=== PATIENT | male | born 1950 | race Caucasian/White ===

== ENCOUNTER → 2016-06-27 | Outpatient (CLI) | payer OTHER | LOC: FIMAGING 13:58 | PROVIDERS: ATTEND Family Medicine | DX: Z13.820 Encounter for screening for osteoporosis (principal); M85.80 Other specified disorders of bone density and structure, unspecified site ==

== ENCOUNTER 2016-09-19 19:42 | Emergency (ER) | payer OTHER ==
--- NOTE | 2016-09-19 20:12 | CPEKG ---
Heart Rate: 75 RR Interval: 800 P-R Interval: 176 QRSD Interval: 118 QT Interval: 396 QTC Interval: 443 P Gilbert: 67 QRS Gilbert: 77 T Wave Gilbert: 57 EKG Severity - ABNORMAL ECG - EKG Impression: SINUS RHYTHM EKG Impression: INCOMPLETE RIGHT BUNDLE BRANCH BLOCK Electronically Signed By: Felicia Henry 20-Sep-2016 00:53:40
[2016-09-19 20:29] LABS: % IMMATURE GRANULYOCYTES 0.4 % (0.0-1.1); ABSOLUTE IMMATURE GRANULOCYTES 0.02 10^3/uL (0.00-0.10); ADD DIFF? NO; ADD MORPH? NO; ADD SCAN? NO; ATYPICAL LYMPHOCYTE FLAG 10 (0-99); FRAGMENT RBC FLAG 0 (0-99); HEMATOCRIT 44.9 % (40.0-51.0); HEMOGLOBIN 15.7 g/dL (13.7-17.5); LEFT SHIFT FLG 0 (0-99); LIPEMIA HEMOLYSIS FLAG 90 (0-99); MEAN CELL VOLUME 91.6 fL (81.5-99.8); MEAN PLATELET VOLUME 9.4 fL (8.7-11.7); PLATELET CLUMPS FLAG 0 (0-99); PLATELET COUNT 248 10^3/uL (150-400); RED CELL DISTRIBUTION WIDTH 12.5 % (11.5-15.2)
--- NOTE | 2016-09-19 20:32 | EDPHY ---
H & P Stated Complaint: c/o narrowing of vision and lightheadedness, followed by nausea, sob now Time Seen by Provider: 09/19/16 20:16 HPI/ROS: CHIEF COMPLAINT: Near syncope HISTORY OF PRESENT ILLNESS: This patient is a 65 year old male who presents to the Emergency Department by private vehicle following an episode of near syncope at 1900 tonight. He reports that he was seated, watching TV, when his vision became acutely unfocused and he felt as though he may lose consciousness. When he stood up, he became acutely nauseated. He was able to go upstairs and pass a bowel movement; he did not feel lightheaded at that time. Upon arrival to the ED, he reports mild posterior head pressure and persistent lightheadedness. Patient does report that all day he felt somewhat uncomfortable in his abdomen. [place] as if he needed to have a bowel movement but was unable to pass any stool. He denies any chest pain or shortness of breath palpitations during the episode this evening. He did not lose consciousness. He reports feeling slightly lightheaded as if it is his vertigo currently. He tells me has a long history of feeling occasionally unfocused which he describes as vertigo He denies urinary complaints. No fever, chills, chest pain, shortness of breath, palpitations, or urinary complaints. Medical history includes ocular migraines. He also has a history of vertigo and reports that this has been more pronounced the last two days. REVIEW OF SYSTEMS: Aside from elements discussed in the HPI, a comprehensive 10-point review of systems was reviewed and is negative. PAST MEDICAL HISTORY: Triple aortic aneurysm with repair in 2007, chronic neck pain, kidney stones, ocular migraines. SOCIAL HISTORY: at bedside. Sees a chiropractor regularly for chronic neck pain. Some chiropractic manipulation was performed approximately 1 week ago. PHYSICAL EXAM: VITAL SIGNS: Reviewed by me GENERAL: Well-developed, well-nourished, resting comfortably in no respiratory distress. HEENT: Atraumatic. Eyes: No icterus, no injection. LEESA, EOMI. No nystagmus. Mouth: moist mucous membranes. No erythema or lesions. Neck: supple with no adenopathy. No bruit auscultated. LUNGS: Clear to auscultation bilaterally, no wheezes, rhonchi or rales. CARDIAC: Regular rate and rhythm, no rubs, murmurs or gallops. ABDOMEN: Soft, nontender, nondistended, bowel sounds normal. BACK: No CVA tenderness. EXTREMITIES: No trauma. No edema. Range of motion is normal throughout. NEURO: Alert and oriented, grossly nonfocal, normal motor and sensation throughout, normal finger to nose, normal gait. Fluent speech. SKIN: Warm and dry, no rash. PSYCHIATRIC: Normal mentation, no agitation. Portions of this note were transcribed by a medical education specialist. I personally performed a history, physical exam, medical decision making, and confirmed accuracy of information the transcribed note. Source: Patient - Medical/Surgical History Hx Asthma: No Hx Chronic Respiratory Disease: Yes Hx Diabetes: No Hx Cardiac Disease: No Hx Renal Disease: No Hx Cirrhosis: No Hx Alcoholism: No Hx HIV/AIDS: No Hx Splenectomy or Spleen Trauma: No Other PMH: lupus, kidney stones, silicosis, aaa repair, bladder surg, ks lithotripsy - Social History Smoking Status: Former smoker Constitutional: Initial Vital Signs Temperature (C) 36.7 C 09/19/16 19:46 Heart Rate 76 09/19/16 19:46 Respiratory Rate 16 09/19/16 19:46 Blood Pressure 190/109 H 09/19/16 19:46 O2 Sat (%) 97 09/19/16 19:46 O2 Delivery Mode Room Air Allergies/Adverse Reactions: Penicillins Allergy (Verified 09/19/16 19:50) Sulfa (Sulfonamide Antibiotics) Allergy (Verified 09/19/16 19:50) Home Medications: Medication Instructions Recorded Ciprofloxacin 500 mg 12/06/15 Plaquenil 200 mg (*) 200 mg 12/06/15 Acyclovir 12/14/15 Medical Decision Making - Diagnostics EKG Interpretation: The 12 lead EKG was interpreted by myself: Sinus rhythm, rate 75; multiple PVCs ; incomplete RBBB; no ischemic changes. See hard copy and/or "tracemaster" electronic copy for interpretation. Imaging Results: Imaging Impressions Head CT 09/19/16 20:43 Impression: Normal. Results communicated to staff at 2110 hours. Additional imaging is pending. Head CTA 09/19/16 20:43 Impression: 1. 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 2. Silicosis. Note: All stenoses are calculated using NASCET Criteria. CT Angiography of the Head Clinical Indications: Headache. R29.818. Neurological changes strongly suggesting intracerebral aneurysm. Technique: During automated power injection of 75 mL of Isovue-370, thinly collimated spiral (volumetric) multidetector helical imaging was performed through the head. Independent three-dimensional computer workstation was used for additional manipulations of images by me. Dose reduction techniques were utilized. Findings: The [place] of [place] and its branches are normal. No evidence of aneurysm or vascular malformation. Anterior communicating artery is patent. Posterior communicating arteries are not identified. Typical vertebrobasilar anatomy. No occlusions are found. Impression: Normal. I telephoned results to Dr. Felicia Henry at 2203 hours. All stenoses are scored using NASCET criteria. Neck CTA 09/19/16 20:43 Impression: 1. 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 2. Silicosis. Note: All stenoses are calculated using NASCET Criteria. CT Angiography of the Head Clinical Indications: Headache. R29.818. Neurological changes strongly suggesting intracerebral aneurysm. Technique: During automated power injection of 75 mL of Isovue-370, thinly collimated spiral (volumetric) multidetector helical imaging was performed through the head. Independent three-dimensional computer workstation was used for additional manipulations of images by me. Dose reduction techniques were utilized. Findings: The [place] of [place] and its branches are normal. No evidence of aneurysm or vascular malformation. Anterior communicating artery is patent. Posterior communicating arteries are not identified. Typical vertebrobasilar anatomy. No occlusions are found. Impression: Normal. I telephoned results to Dr. Felicia Henry at 2203 hours. All stenoses are scored using NASCET criteria. Brain MRI 09/19/16 22:31 Impression: 1. Mild diffuse cortical atrophy. 2. No ischemic lesion is identified. I telephoned results to Dr. Felicia Henry at 2330 hours. Imaging: Discussed imaging studies w/ call center agent Radiologist ED Course/Re-evaluation: This 65 year old male presents following episode of visual difficulties, lightheadedness, slight nausea, while watching TV at 1900 today. He reports sudden onset vision changes followed by acute lightheadedness and nausea, partially improved at time of arrival to the ED. He is alert, conversant, and appropriate appearing on exam with no significant findings. Will proceed with labs, EKG, and CT scans to include CT angiogram of the head and neck. Labs obtained and are within normal limits. Troponin is negative. 2205: CT results reported to me by Dr. Harsh Giraldo, radiologist. Plan for consultation with neurology to discuss CTA results. 2223: Consultation with the on-call neurologist with [facility] who recommends we proceed with MRI. He also recommends that admission unless the patient is 100% asymptomatic. Patient's MRI demonstrates no focal lesions. Prior to MRI and after return from MRI the patient reports symptoms have 100% resolved. We discussed admission to the hospital for further evaluation of a potential TIA. Patient and his feel comfortable being discharged home and would prefer to complete the evaluation as an outpatient. Patient will begin taking an aspirin for the vertebral atherosclerosis as noted on the CT scan. He understands that his symptoms this evening may have represented TIA. His symptoms have now resolved. He understands the importance of close follow-up with Neurology. He was given referral to [facility]. Patient understands reasons to return to the emergency department. Differential Diagnosis: Differential diagnoses the patient's presenting complaints was considered including but not limited to intracranial injury, TIA, ischemic cerebrovascular accident, hemorrhagic cerebrovascular accident, hypoglycemia, complex migraine , metastases, vasovagal syncope, arrhythmia, dehydration, and blood loss, tumor , seizure. - Data Points Laboratory Results: Laboratory Results 09/19/16 20:05 09/19/16 20:05 09/19/16 09/19/16 20:05 20:05 WBC 5.46 10^3/uL 10^3/uL (3.80-9.50) RBC 4.90 10^6/uL 10^6/uL (4.40-6.38) Hgb 15.7 g/dL g/dL (13.7-17.5) Hct 44.9 % % (40.0-51.0) MCV 91.6 fL fL (81.5-99.8) MCH 32.0 pg pg (27.9-34.1) MCHC 35.0 g/dL g/dL (32.4-36.7) RDW 12.5 % % (11.5-15.2) Plt Count 248 10^3/uL 10^3/uL (150-400) MPV 9.4 fL fL (8.7-11.7) Neut % (Auto) 72.4 % % (39.3-74.2) Lymph % (Auto) 14.5 % L % (15.0-45.0) [place] % (Auto) 9.3 % % (4.5-13.0) Eos % (Auto) 2.7 % % (0.6-7.6) Baso % (Auto) 0.7 % % (0.3-1.7) Nucleat RBC Rel Count 0.0 % % (0.0-0.2) Absolute Neuts (auto) 3.95 10^3/uL 10^3/uL (1.70-6.50) Absolute Lymphs (auto) 0.79 10^3/uL L 10^3/uL (1.00-3.00) Absolute Monos (auto) 0.51 10^3/uL 10^3/uL (0.30-0.80) Absolute Eos (auto) 0.15 10^3/uL 10^3/uL (0.03-0.40) Absolute Basos (auto) 0.04 10^3/uL 10^3/uL (0.02-0.10) Absolute Nucleated RBC 0.00 10^3/uL 10^3/uL (0-0.01) Immature Gran % 0.4 % % (0.0-1.1) Immature Gran # 0.02 10^3/uL 10^3/uL (0.00-0.10) Sodium 141 mEq/L mEq/L (134-144) Potassium 3.8 mEq/L mEq/L (3.5-5.2) Chloride 104 mEq/L mEq/L (97-110) Carbon Dioxide 26 mEq/l mEq/l (22-31) Anion Gap 11 mEq/L mEq/L (8-16) BUN 18 mg/dL mg/dL (7-23) Creatinine 1.1 mg/dL mg/dL (0.7-1.3) Estimated GFR > 60 Glucose 89 mg/dL mg/dL (70-100) Calcium 10.0 mg/dL mg/dL (8.5-10.4) Troponin I < 0.012 ng/mL ng/mL (0-0.034) Departure - Departure Disposition: Home, Routine, Self-Care Clinical Impression: Vasovagal near syncope TIA (transient ischemic attack) Qualifiers: Transient cerebral ischemia type: unspecified Qualified Code(s): G45.9 - Transient cerebral ischemic attack, unspecified Condition: Fair Report Scribed for: Felicia Henry Report Scribed by: Maricruz Pinedo Date of Report: 09/19/16 Time of Report: 20:25
[2016-09-19 20:33] LABS: ANION GAP 11 mEq/L (8-16); CARBON DIOXIDE 26 mEq/l (22-31); CHLORIDE 104 mEq/L (97-110); CREATININE 1.1 mg/dL (0.7-1.3); GLOMERULAR FILTRATION RATE > 60; GLUCOSE 89 mg/dL (70-100); POTASSIUM 3.8 mEq/L (3.5-5.2); SODIUM 141 mEq/L (134-144)
[2016-09-19 20:44] LABS: TROPONIN I < 0.012 ng/mL (0-0.034)
[2016-09-19] MEDS ORDERED: IOPAMIDOL (ISOVUE 370) 100 ML BTL IV ONE (20:49)
[2016-09-19 21:44] VITALS: TEMP 98.2
[2016-09-19 23:47] VITALS: BP 142/64; PULSE 68; RESP 18; O2SAT 96
== END 2016-09-19 23:46 | disposition home or self-care (01) ==
LOC: UNDOADMOB 22:33
DX: R55 Syncope and collapse (principal); G45.9 Transient cerebral ischemic attack, unspecified; Z87.891 Personal history of nicotine dependence
CPT/HCPCS: 70450; 70496; 70498; 70551; 93005; Q9967

== ENCOUNTER 2016-09-29 12:19 | Observation (INO) | payer OTHER ==
--- NOTE | 2016-09-29 12:33 | EDPHY ---
H & P Time Seen by Provider: 09/29/16 12:24 HPI/ROS: CHIEF COMPLAINT: Groin swelling. HISTORY OF PRESENT ILLNESS: The patient is a 65-year-old male, brought in by EMS , s/p left vertebral artery stent placement, who presents with sudden onset of right groin swelling. The patient was walking and felt a sudden popping sensation in his right groin followed by weakness in his lower extremity. After resting for a bit, he developed a firm, swollen, bulge to his right groin. Patient was nauseous during transport and received 4mg Zofran. The patient takes a daily Aspirin. REVIEW OF SYSTEMS: A comprehensive 10 point review of systems is otherwise negative aside from elements mentioned in the history of present illness. Past Medical/Surgical History: Lupus, AAA Social History: . Lives in [place]. Smoking Status: Former smoker Physical Exam: General Appearance: Alert, pleasant Eyes: Pupils equal and round, no conjunctival pallor or injection ENT, Mouth: Mucous membranes moist Neck: Normal inspection Respiratory: Lungs are clear to auscultation Cardiovascular: Regular rate and rhythm Gastrointestinal: Abdomen is soft and non-tender Neurological: A&O, nonfocal, normal gait Skin: Warm and dry, no rash Extremities: Moderate area of swelling in the right groin- 4cm in diameter Psychiatric: Mood and affect normal Constitutional: Initial Vital Signs Temperature (C) 36.8 C 09/29/16 12:20 Heart Rate 92 09/29/16 12:20 Respiratory Rate 16 09/29/16 12:20 Blood Pressure 160/91 H 09/29/16 12:20 O2 Sat (%) 97 09/29/16 12:20 O2 Delivery Mode Room Air Allergies/Adverse Reactions: Penicillins Allergy (Verified 09/29/16 13:30) Rash Sulfa (Sulfonamide Antibiotics) Allergy (Verified 09/29/16 13:30) Rash Home Medications: Medication Instructions Recorded Aspirin [Aspirin 325 mg (*)] 325 mg PO DAILY 09/29/16 Ciprofloxacin HCl [Ciprofloxacin] 500 mg PO MOWEFR 09/29/16 Clopidogrel Bisulfate [Plavix (*)] 75 mg PO DAILY 09/29/16 Hydroxychloroquine Sulfate 200 mg PO DAILY 09/29/16 [Plaquenil 200 mg (*)] Medical Decision Making ED Course/Re-evaluation: The patient had vertebral artery stent placed yesterday. Today he developed sudden onset right groin swelling. I spoke to the patient's neuro-radiologist. He would like the patient admitted for 24 hours of lying flat. Direct pressure is being applied to the right groin. Lab work is unremarkable. US is pending. - Data Points Laboratory Results: Laboratory Results 09/29/16 12:34 09/29/16 12:34 09/29/16 09/29/16 12:34 12:34 WBC 6.56 10^3/uL 10^3/uL (3.80-9.50) RBC 4.93 10^6/uL 10^6/uL (4.40-6.38) Hgb 16.0 g/dL g/dL (13.7-17.5) Hct 44.3 % % (40.0-51.0) MCV 89.9 fL fL (81.5-99.8) MCH 32.5 pg pg (27.9-34.1) MCHC 36.1 g/dL g/dL (32.4-36.7) RDW 12.4 % % (11.5-15.2) Plt Count 232 10^3/uL 10^3/uL (150-400) MPV 9.4 fL fL (8.7-11.7) Neut % (Auto) 74.8 % H % (39.3-74.2) Lymph % (Auto) 13.6 % L % (15.0-45.0) [place] % (Auto) 9.8 % % (4.5-13.0) Eos % (Auto) 0.9 % % (0.6-7.6) Baso % (Auto) 0.6 % % (0.3-1.7) Nucleat RBC Rel Count 0.0 % % (0.0-0.2) Absolute Neuts (auto) 4.91 10^3/uL 10^3/uL (1.70-6.50) Absolute Lymphs (auto) 0.89 10^3/uL L 10^3/uL (1.00-3.00) Absolute Monos (auto) 0.64 10^3/uL 10^3/uL (0.30-0.80) Absolute Eos (auto) 0.06 10^3/uL 10^3/uL (0.03-0.40) Absolute Basos (auto) 0.04 10^3/uL 10^3/uL (0.02-0.10) Absolute Nucleated RBC 0.00 10^3/uL 10^3/uL (0-0.01) Immature Gran % 0.3 % % (0.0-1.1) Immature Gran # 0.02 10^3/uL 10^3/uL (0.00-0.10) Sodium 139 mEq/L mEq/L (134-144) Potassium 4.2 mEq/L mEq/L (3.5-5.2) Chloride 107 mEq/L mEq/L (97-110) Carbon Dioxide 23 mEq/l mEq/l (22-31) Anion Gap 9 mEq/L mEq/L (8-16) BUN 12 mg/dL mg/dL (7-23) Creatinine 0.9 mg/dL mg/dL (0.7-1.3) Estimated GFR > 60 Glucose 90 mg/dL mg/dL (70-100) Calcium 10.2 mg/dL mg/dL (8.5-10.4) Departure - Departure Disposition: [facility] Inpatient Acute Clinical Impression: Groin hematoma Qualifiers: Encounter type: initial encounter Qualified Code(s): S30.1XXA - Contusion of abdominal wall, initial encounter Condition: Good Report Scribed for: Jerri Lino Report Scribed by: Belen Eddy Date of Report: 09/29/16 Time of Report: 12:37 Physician Review and Approval Statement: 09/29/16 12:37 Portions of this note were transcribed by a medical lab assistant. I personally performed the history, physical exam, and medical decision-making; and confirmed the accuracy of the information in the transcribed note.
[2016-09-29 12:40] LABS: % IMMATURE GRANULYOCYTES 0.3 % (0.0-1.1); ABSOLUTE IMMATURE GRANULOCYTES 0.02 10^3/uL (0.00-0.10); ADD DIFF? NO; ADD MORPH? NO; ADD SCAN? NO; ATYPICAL LYMPHOCYTE FLAG 30 (0-99); FRAGMENT RBC FLAG 0 (0-99); HEMATOCRIT 44.3 % (40.0-51.0); LEFT SHIFT FLG 0 (0-99); LIPEMIA HEMOLYSIS FLAG 90 (0-99); MEAN CELL HEMOGLOBIN 32.5 pg (27.9-34.1); MEAN CELL HEMOGLOBIN CONCENTR. 36.1 g/dL (32.4-36.7); MEAN CELL VOLUME 89.9 fL (81.5-99.8); MEAN PLATELET VOLUME 9.4 fL (8.7-11.7); PLATELET CLUMPS FLAG 0 (0-99); PLATELET COUNT 232 10^3/uL (150-400); RED BLOOD CELL COUNT 4.93 10^6/uL (4.40-6.38); RED CELL DISTRIBUTION WIDTH 12.4 % (11.5-15.2)
[2016-09-29 12:54] LABS: ANION GAP 9 mEq/L (8-16); CALCIUM 10.2 mg/dL (8.5-10.4); CARBON DIOXIDE 23 mEq/l (22-31); CHLORIDE 107 mEq/L (97-110); CREATININE 0.9 mg/dL (0.7-1.3); GLOMERULAR FILTRATION RATE > 60; GLUCOSE 90 mg/dL (70-100); POTASSIUM 4.2 mEq/L (3.5-5.2); SODIUM 139 mEq/L (134-144)
[2016-09-29] MEDS ORDERED: ACETAMINOPHEN 325 MG TAB PO PRN (15:10)
[2016-09-29] MEDS ORDERED: TEMAZEPAM 15 MG CAP PO PRN (15:10)
[2016-09-29] MEDS ORDERED: ONDANSETRON 4 MG/2 ML VIAL IVP PRN (15:10)
--- NOTE | 2016-09-29 15:16 | GHP ---
[f rep st] HISTORY AND PHYSICAL DATE OF ADMISSION: 09/29/2016 CHIEF COMPLAINT: Right groin swelling. HISTORY OF PRESENT ILLNESS: This is a 65-year-old male, initially presented to the emergency depart [facility] on 09/19/2016, with presyncopal symptoms, as well as visual changes. A CT angio of the head an d neck, as well as a brain MRI, were done, which demonstrated severe stenosis at the origin of the r ight vertebral artery. The patient subsequently underwent vertebral artery stent placement at [facility] this past Friday. He was monitored in the ICU for 24 hours postprocedure, and was subs equently discharged yesterday. He has been on aspirin and Plavix for the past 10 days. Today, he was moving around his house, when he had sudden onset of right groin swelling, which he as sociated with a sudden popping sensation in his right groin. He did develop some weakness in his le gs. Currently, he denies any numbness or weakness in his right leg or foot. He is feeling anxious lying in bed, but otherwise denies any generalized weakness or pain. PAST MEDICAL HISTORY: 1. Silicosis. 2. SLE. 3. Ruptured AAA, status post repair. 4. Kidney stones. HOME MEDICATIONS: Reviewed. Refer to [facility] for details. ALLERGIES: Penicillin and sulfa. SOCIAL HISTORY: He denies any alcohol, tobacco, or illicit drug use. FAMILY HISTORY: Reviewed and noncontributory. REVIEW OF SYSTEMS: Comprehensive 10-point review of systems was negative, except for as mentioned i n the HPI. PHYSICAL EXAM: GENERAL: In no acute distress. HEAD: Normocephalic, atraumatic. EYES: PERRLA. Sclerae anicteric. MOUTH: Moist mucous membranes. NECK: Supple. No lymphadenopathy. CARDIOVASC ULAR: S1, S2. No murmurs, rubs, clicks, gallops. No JVD. No lower extremity edema. PULMONARY: Lungs are clear. No wheezes, rales, or rhonchi. ABDOMEN: Soft, nontender, nondistended. No guard ing or rebound tenderness. Normoactive bowel sounds. GROIN: There is an approximately 3 cm area o f fullness without fluctuance superior to the right femoral artery puncture site. 2+ dorsal pedal a nd posterior tibial pulses bilaterally. EXTREMITIES: No clubbing or cyanosis. SKIN: training executive both feet. NEURO: Cranial nerves 2-12 grossly intact. No focal motor or sensory deficits. DIAGNOSTICS: WBC 6.56, hemoglobin 16, hematocrit 44.3, platelets 232. Sodium 139, potassium 4.2, c hloride 107, BUN 12, creatinine 0.9, glucose 90. Calcium within normal range. CT angio of the head and neck done 09/19/2016, was reviewed, brain MRI done 09/19/2016, was reviewed. ASSESSMENT: This is a 65-year-old male, diagnosed with severe right vertebral artery stenosis on 2016, who underwent vertebral artery stent placement on September 27, 2016, at [facility] presenting w ith right groin hematoma. PLAN: The patient will be placed on observation. Ultrasound has been ordered to evaluate for pseud oaneurysm. The patient will be monitored for retroperitoneal bleeding, as well. We will repeat H a nd H later on today. I have a call into Dr. Zamora, who is liquefaction supervisor for General Surgery, to further di scuss care, as well. For now, weight will be placed in the right groin, and the patient will be kep t in a supine position for the next 24 hours, per the request of his neuroradiologist at [facility]. The patient will be continued on aspirin and Plavix. /[id number]/MODL
[2016-09-29 23:55] LABS: HEMATOCRIT 40.7 % (40.0-51.0); HEMOGLOBIN 14.2 g/dL (13.7-17.5)
[2016-09-30 00:04] LABS: INR 1.12 (0.83-1.16); PROTIME(PATIENT) 14.3 SEC (12.0-15.0)
[2016-09-30 00:05] LABS: APTT 24.9 SEC (23.0-38.0)
[2016-09-30 08:16] LABS: HEMATOCRIT 43.6 % (40.0-51.0); HEMOGLOBIN 15.2 g/dL (13.7-17.5)
[2016-09-30] MEDS ORDERED: CLOPIDOGREL BISULFATE 75 MG TAB PO SCH (09:00)
[2016-09-30] MEDS ORDERED: HYDROXYCHLOROQUINE SULFATE 200 MG TAB PO SCH (09:00)
[2016-09-30] MEDS ORDERED: ASPIRIN 325 MG TAB PO SCH (09:00)
--- NOTE | 2016-09-30 09:22 | HOSPPROG ---
Hospitalist Progress Note Assessment/Plan: #Right groin hematoma: U/S with no pseudoaneurysm. H/H stable #Syncope: no e/o ischemia. #Disp: DC today Subjective: no groin pain. No dizziness Objective: Vital Signs Temp Pulse Resp BP Pulse Ox 36.7 C 76 16 146/82 H 96 09/30/16 08:00 09/30/16 08:00 09/30/16 08:00 09/30/16 08:00 09/30/16 08:00 Laboratory Results 09/30/16 08:10 09/29/16 09/30/16 10/01/16 05:59 05:59 05:59 Output Total 700 Balance -700 PT 14.3 SEC (12.0-15.0) 09/29/16 23:40 INR 1.12 (0.83-1.16) 09/29/16 23:40 - Physical Exam Constitutional: no apparent distress, other (lying suspine) Ears, Nose, Mouth, Throat: moist mucous membranes Cardiovascular: regular rate and rhythym, no murmur, rub, or gallop Respiratory: no respiratory distress, no rales or rhonchi Gastrointestinal: normoactive bowel sounds, soft, non-tender abdomen Genitourinary: no bladder fullness, no bladder tenderness Skin: warm Musculoskeletal: other (right groin incision site with min swelling. +2 femoral , pedal, dorsalis pulse) Neurologic: AAOx3, sensation intact bilaterally, CN II-XII Intact Psychiatric: interacting appropriately ICD10 Worksheet Patient Problems: Problems Problem Status Onset Groin hematoma Acute TIA (transient ischemic attack) Acute Vasovagal near syncope Acute
[2016-09-30 12:46] VITALS: RESP 14
[2016-09-30 15:33] VITALS: BP 134/73; PULSE 83; TEMP 98.2; O2SAT 97
[2016-09-30 16:41] LABS: HEMATOCRIT 43.1 % (40.0-51.0); HEMOGLOBIN 14.9 g/dL (13.7-17.5)
--- NOTE | 2016-09-30 18:05 | GDS ---
[f rep st] DISCHARGE SUMMARY DISCHARGE DIAGNOSES: 1. History of ruptured abdominal aortic aneurysm, status post repair. 2. Lupus. 3. Silicosis. 4. Kidney stones. 5. Acute right groin hematoma. HISTORY OF PRESENT ILLNESS: Patient is a 65-year-old male, who initially presented to the ER on with presyncopal symptoms, as well as visual changes. A CT angio head and neck demonstrated severe stenosis at the origin of the right vertebral artery. He underwent a vertebral artery stent placement at [facility] by Dr. Dolan. He was monitored in the ICU 24 hours postprocedure and was discharged yesterday. He has been taking aspirin and Plavix as prescribed. Yesterday, he was moving around the house and then gardening. He felt sudden onset of swelling in the right groin. H e developed some weakness in his legs, but denies any weakness or numbness. HOSPITAL COURSE BY PROBLEM: 1. Groin hematoma: Secondary to vertebral artery stent placement. He was admitted and observed ov [facility]. Pressure was placed with sandbags. Hematoma nearly resolved this morning with good pulses . I did speak with his primary neurosurgeon, Dr. Dolan, and he will follow up with him tomorrow. Waqar rodriguez is to continue his statin and Plavix. 2. Other medical conditions: Continue current treatment. DISPOSITION: Patient is stable for discharge. FOLLOWUP: With his primary neurosurgeon. /[id number]/MODL
== END 2016-09-30 18:09 | disposition home or self-care (01) ==
LOC: EDUNIT# → F3E 13:50
PROVIDERS: ADMIT Family Medicine; ATTEND Internal Medicine
DX: I97.638 Postprocedural hematoma of a circulatory system organ or structure following other circulatory system procedure (principal); M32.9 Systemic lupus erythematosus, unspecified; J62.8 Pneumoconiosis due to other dust containing silica; N20.0 Calculus of kidney
CPT/HCPCS: 76936; 76942; G0378

== ENCOUNTER 2016-10-02 12:28 | Emergency (ER) | payer OTHER ==
--- NOTE | 2016-10-02 12:41 | EDPHY ---
H & P Time Seen by Provider: 10/02/16 12:37 HPI/ROS: CHIEF COMPLAINT: Visual change HISTORY OF PRESENT ILLNESS: Patient is a 65-year-old male with recent vertebral artery stent placement. Patient states that over the past year he has had a few episodes of visual change. 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 On 09/18/2016 he return of his symptoms and was seen in the emergency department. 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 He was discharged from the emergency department and followed up with Dr. Felipe the next day. Dr. Felipe recommended stent placement and the procedure was performed at [facility]. Patient had a subsequent groin hematoma. He has been home for the past few days. He has been doing well with no new complaints. Today was staying in a garage when he noticed sudden visual change. This lasted for few seconds. He described by ocular spots and lights. His symptoms are now resolved. He had no other symptoms today. He denies headache, dizziness, lightheadedness, neck pain, nausea or vomiting. He has no weakness or numbness. REVIEW OF SYSTEMS: My complete review of systems is negative except as mentioned in the HPI. Past Medical/Surgical History: Includes abdominal aortic aneurysm, vertebral artery occlusion Past surgical history: Includes AAA repair, right vertebral artery stent placement Social history: The patient is . He does not smoke Smoking Status: Former smoker Physical Exam: Vitals noted GENERAL: Well-appearing, in no acute distress, alert. HEENT: PERRLA. Eyes normal to inspection, normal pharynx, no signs of dehydration. NECK: No thyromegaly, no lymphadenopathy, supple. RESPIRATORY: Clear to auscultation bilaterally, no rales, rhonchi or wheezing. CVS: Regular rate and rhythm, no rubs, murmurs, or gallops. ABDOMEN: Soft, nontender, nondistended, no organomegaly. BACK: Normal to inspection, no CVA tenderness. SKIN: Normal color, no rash, warm, dry. No pallor. EXTREMITIES: No pedal edema, no calf tenderness, no Homans sign or cords, no joint swelling. NEURO/PSYCH: Higher functions: Alert and Oriented x3. Normal speech and cognition. Normal mood and affect. Cranial nerves: Normal as tested. Cerebellar: Normal as tested. Good finger to nose, good [id number], normal gait. Peripheral exam: Normal motor exam. Normal sensation. Normal reflexes. NIHSS: 0 Constitutional: Initial Vital Signs Temperature (C) 36.8 C 10/02/16 12:41 Heart Rate 81 10/02/16 12:41 Respiratory Rate 16 10/02/16 12:41 Blood Pressure 174/92 H 10/02/16 12:41 O2 Sat (%) 99 10/02/16 12:41 O2 Delivery Mode Room Air Allergies/Adverse Reactions: Penicillins Allergy (Verified 10/02/16 12:44) Rash Sulfa (Sulfonamide Antibiotics) Allergy (Verified 10/02/16 12:44) Rash Home Medications: Medication Instructions Recorded Aspirin 10/02/16 Cipro 10/02/16 Plaquenil 10/02/16 Plavix 10/02/16 Medical Decision Making - Diagnostics Imaging Results: Imaging Impressions Head CTA 10/02/16 13:36 Impression: 1. Normal intracranial arterial circulation. No evidence of embolic disease or aneurysm. 2. Patent venous system. Findings discussed with Emergency Department physician, Dr. Elva Mendoza on October 02, 2016 at 1427 hours. Neck CTA 10/02/16 13:36 Impression: 1. New right vertebral arteries stent appears patent. No vertebral artery occlusion. 2. Widely patent carotid arteries. Unchanged mild calcified plaque. 3. Progressive massive fibrosis consistent with silicosis. Findings discussed with Emergency Department physician, Elva Mendoza on at 1427 hours. Measurement of carotid stenosis is based on the residual internal carotid diameter with [place] Symptomatic Carotid Endarterectomy Trial (NASCET) based stenosis levels. ED Course/Re-evaluation: In the emergency department I met the patient on arrival. He had no complaints. His neuro exam was normal. I contacted Dr. Scales's office. The nurse stated that Dr. Scales recommended the patient undergo CT angio. I discussed the plan with the patient. I answered all his questions. I rechecked the patient on numerous occasions. He had a nonfocal neuro exam while here. CT angio head and neck: Please refer the dictated report by Dr. Palumbo. The stent appears patent with distal flow. There is no other abnormality noted. 14 50: I discussed the case with Dr. Scales. I informed him of CT angiogram results. He felt the patient did not need further imaging in the emergency department. He did not want MRI at this time. On recheck the patient was doing well. He had a nonfocal neuro exam. He is given warnings prior to leaving. He will return with worsening symptoms. Differential Diagnosis: Differential includes but is not limited to ischemic CVA, hemorrhagic CVA, stent occlusion, dissection, aneurysm, retinal detachment, vitreous hemorrhage - Data Points Laboratory Results: Laboratory Results 10/02/16 12:40 10/02/16 12:40 10/02/16 10/02/16 10/02/16 12:40 12:40 12:40 WBC 6.14 10^3/uL 10^3/uL (3.80-9.50) RBC 5.13 10^6/uL 10^6/uL (4.40-6.38) Hgb 16.8 g/dL g/dL (13.7-17.5) Hct 47.2 % % (40.0-51.0) MCV 92.0 fL fL (81.5-99.8) MCH 32.7 pg pg (27.9-34.1) MCHC 35.6 g/dL g/dL (32.4-36.7) RDW 12.4 % % (11.5-15.2) Plt Count 297 10^3/uL 10^3/uL (150-400) MPV 9.5 fL fL (8.7-11.7) Neut % (Auto) 73.4 % % (39.3-74.2) Lymph % (Auto) 14.0 % L % (15.0-45.0) [place] % (Auto) 9.4 % % (4.5-13.0) Eos % (Auto) 1.8 % % (0.6-7.6) Baso % (Auto) 0.7 % % (0.3-1.7) Nucleat RBC Rel Count 0.0 % % (0.0-0.2) Absolute Neuts (auto) 4.51 10^3/uL 10^3/uL (1.70-6.50) Absolute Lymphs (auto) 0.86 10^3/uL L 10^3/uL (1.00-3.00) Absolute Monos (auto) 0.58 10^3/uL 10^3/uL (0.30-0.80) Absolute Eos (auto) 0.11 10^3/uL 10^3/uL (0.03-0.40) Absolute Basos (auto) 0.04 10^3/uL 10^3/uL (0.02-0.10) Absolute Nucleated RBC 0.00 10^3/uL 10^3/uL (0-0.01) Immature Gran % 0.7 % % (0.0-1.1) Immature Gran # 0.04 10^3/uL 10^3/uL (0.00-0.10) PT 13.8 SEC SEC (12.0-15.0) INR 1.07 (0.83-1.16) APTT 24.8 SEC SEC (23.0-38.0) Sodium 139 mEq/L mEq/L (134-144) Potassium 4.5 mEq/L mEq/L (3.5-5.2) Chloride 101 mEq/L mEq/L (97-110) Carbon Dioxide 25 mEq/l mEq/l (22-31) Anion Gap 13 mEq/L mEq/L (8-16) BUN 13 mg/dL mg/dL (7-23) Creatinine 1.1 mg/dL mg/dL (0.7-1.3) Estimated GFR > 60 Glucose 93 mg/dL mg/dL (70-100) Calcium 10.8 mg/dL H mg/dL (8.5-10.4) Phosphorus Pending Departure - Departure Disposition: Home, Routine, Self-Care Clinical Impression: Visual changes Condition: Good Instructions: Blurred Vision (ED) Additional Instructions: Return with increasing visual change, headache, weakness, numbness or any other concerns. Referrals: Patient,NotPresent [Primary Care Provider] - As per Instructions
[2016-10-02 12:44] VITALS: RESP 16; TEMP 98.2
[2016-10-02] MEDS ORDERED: IOPAMIDOL (ISOVUE 370) 100 ML BTL IV ONE (13:51)
[2016-10-02 13:53] LABS: % IMMATURE GRANULYOCYTES 0.7 % (0.0-1.1); ABSOLUTE IMMATURE GRANULOCYTES 0.04 10^3/uL (0.00-0.10); ADD DIFF? NO; ADD MORPH? NO; ADD SCAN? NO; ATYPICAL LYMPHOCYTE FLAG 0 (0-99); FRAGMENT RBC FLAG 0 (0-99); HEMATOCRIT 47.2 % (40.0-51.0); HEMOGLOBIN 16.8 g/dL (13.7-17.5); LEFT SHIFT FLG 0 (0-99); LIPEMIA HEMOLYSIS FLAG 90 (0-99); MEAN CELL HEMOGLOBIN 32.7 pg (27.9-34.1); MEAN CELL HEMOGLOBIN CONCENTR. 35.6 g/dL (32.4-36.7); MEAN PLATELET VOLUME 9.5 fL (8.7-11.7); PLATELET CLUMPS FLAG 0 (0-99); PLATELET COUNT 297 10^3/uL (150-400); RED BLOOD CELL COUNT 5.13 10^6/uL (4.40-6.38); RED CELL DISTRIBUTION WIDTH 12.4 % (11.5-15.2)
[2016-10-02 14:00] LABS: ANION GAP 13 mEq/L (8-16); CALCIUM 10.8 mg/dL (8.5-10.4); CARBON DIOXIDE 25 mEq/l (22-31); CHLORIDE 101 mEq/L (97-110); CREATININE 1.1 mg/dL (0.7-1.3); GLOMERULAR FILTRATION RATE > 60; GLUCOSE 93 mg/dL (70-100); POTASSIUM 4.5 mEq/L (3.5-5.2); SODIUM 139 mEq/L (134-144)
[2016-10-02 14:40] LABS: INR 1.07 (0.83-1.16); PROTIME(PATIENT) 13.8 SEC (12.0-15.0)
[2016-10-02 14:41] LABS: APTT 24.8 SEC (23.0-38.0)
[2016-10-02 15:15] VITALS: BP 151/84; PULSE 70; O2SAT 95
== END 2016-10-02 15:15 | disposition home or self-care (01) ==
LOC: EDUNIT#
DX: H57.8 Other specified disorders of eye and adnexa (principal); Z79.82 Long term (current) use of aspirin; Z87.891 Personal history of nicotine dependence
CPT/HCPCS: 70496; 70498; 99285; Q9967

== ENCOUNTER → 2017-01-07 | Outpatient (CLI) | payer OTHER ==
[~2017-01-07] MED LIST: IOPAMIDOL (ISOVUE 370) 100 ML BTL IV ONE
== END ==
LOC: FIMAGING 13:45
DX: Z09 Encounter for follow-up examination after completed treatment for conditions other than malignant neoplasm (principal); I65.09 Occlusion and stenosis of unspecified vertebral artery; Z95.828 Presence of other vascular implants and grafts
CPT/HCPCS: 70498; Q9967

== ENCOUNTER → 2018-01-22 | Outpatient (CLI) | payer OTHER | LOC: FIMAGING 14:47 | DX: I65.01 Occlusion and stenosis of right vertebral artery (principal) | CPT/HCPCS: 70498; Q9967; 82565-PO ==

== ENCOUNTER → 2018-04-14 | Outpatient (CLI) | payer OTHER ==
[~2018-04-14] MED LIST changes: +GADOBUTROL 10 ML VIAL IVP ONE; -IOPAMIDOL (ISOVUE 370) 100 ML BTL IV ONE
== END ==
LOC: FIMAGING 03-24 15:33
PROVIDERS: ATTEND Physician Assistant
DX: H90.5 Unspecified sensorineural hearing loss (principal)
CPT/HCPCS: 70553; A9585; 82565-PO